=== PATIENT | male | born 1965 | race Caucasian/White ===

== ENCOUNTER 2017-02-05 18:30 | Emergency (ER) | payer MEDICAID ==
[2011-11-29 09:26] VITALS: BMI 23.1
== END 2017-02-05 22:57 | disposition home or self-care (01) ==
LOC: D.ER 18:30
DX: S61.411A Laceration without foreign body of right hand, initial encounter (principal); W25.XXXA Contact with sharp glass, initial encounter; Y93.89 Activity, other specified; Y92.89 Other specified places as the place of occurrence of the external cause